=== PATIENT | male | born 1970 | race Caucasian/White ===

== ENCOUNTER 2021-01-25 21:08 | Emergency (ER) | payer OTHER, BC ==
[2021-01-25 22:00] VITALS: BP 119/76; PULSE 88; RESP 18; TEMP 97.8
[2021-01-25] MEDS ORDERED: LIDOCAINE 1% INJ 10MG/ML (20 ML MDV) SQ ONE (22:51)
[2021-01-25] MEDS ORDERED: DIPH,PERTUS(ACELL)TETVAC-LF 0.5 ML VIAL IM ONE (22:51)
[2021-01-25] MEDS ORDERED: IBUPROFEN 600 MG TAB PO STA (22:56)
--- NOTE | 2021-01-25 23:08 | XR ---
EXAMINATION TYPE: XR finger RT DATE OF EXAM: 01/25/2021 COMPARISON: NONE HISTORY: Pain TECHNIQUE: 3 views FINDINGS: I see no fracture nor dislocation. Joint spaces are normal. There are no pathologic calcifi cations. IMPRESSION: Negative right thumb exam. No fracture.
[2021-01-25] MEDS ORDERED: CEPHALEXIN 500MG STARTER PACK 4 CAP BTL PO STA (23:35)
[2021-01-25] MEDS ORDERED: BACITRACIN OINT 1 EACH PACKET TOPICAL STA (23:35)
--- NOTE | 2021-01-25 23:36 | ED ---
General Adult HPI - General Chief complaint: Wound/Laceration Stated complaint: Injury,Laceration Rt Thumb Time Seen by Provider: 01/25/21 22:38 Source: patient, RN notes reviewed Mode of arrival: ambulatory Limitations: no limitations - History of Present Illness Initial comments: 50-year-old male presents to the emergency room for deformity of laceration of the right thumb. Patient states he was reaching down to grab a sharp object and it actually skinned across his thumb on the knuckle. Denies any difficulty moving or bending the finger. Patient is not up-to-date on tetanus.Patient has no other complaints at this time including shortness of breath, chest pain, abdominal pain, nausea or vomiting, headache, or visual changes. - Related Data Home Medications Medication Instructions Recorded Confirmed Albuterol Sulfate [Ventolin HFA] 2 puff INHALATION DIRECTED PRN 10/22/14 06/13/15 Mometasone/Formoterol [Dulera 200 2 puff INHALATION DAILY 10/22/14 06/13/15 Mcg/5 Mcg Inhaler] gemfibroziL [Gemfibrozil] 600 mg PO BID 10/22/14 06/13/15 lisinopriL [Lisinopril] 10 mg PO DAILY 10/22/14 06/13/15 metFORMIN HCL 1,000 mg PO BID 10/22/14 06/13/15 Omeprazole [PriLOSEC] 20 mg PO DAILY 01/14/15 06/13/15 Previous Rx's Medication Instructions Recorded Dicyclomine HCl [Bentyl] 20 mg PO TID #30 tab 06/13/15 metroNIDAZOLE [Flagyl] 500 mg PO TID #30 tab 06/13/15 Cephalexin [Keflex] 500 mg PO Q6HR 7 Days #28 cap 01/25/21 Allergies Allergy/AdvReac Type Severity Reaction Status Date / Time No Known Allergies Allergy Verified 01/25/21 22:00 Review of Systems ROS Statement: Those systems with pertinent positive or pertinent negative responses have been documented in the HPI. ROS Other: All systems not noted in ROS Statement are negative. Past Medical History Past Medical History: Asthma, Diabetes Mellitus, GERD/Reflux, Hyperlipidemia, Hypertension, Skin Disorder Additional Past Medical History / Comment(s): DYSPHAGIA,PSORIASIS KNEES,ANKLES & ELBOWS History of Any Multi-Drug Resistant Organisms: None Reported Past Surgical History: Back Surgery Additional Past Surgical History / Comment(s): BACK SX X2, EGD 08/24/14 Past Anesthesia/Blood Transfusion Reactions: No Reported Reaction Past Psychological History: No Psychological Hx Reported Smoking Status: Never smoker Past Alcohol Use History: Occasional Past Drug Use History: None Reported - Past Family History Mother Family Medical History: No Reported History General Exam Limitations: no limitations General appearance: alert, in no apparent distress Head exam: Present: atraumatic Eye exam: Present: normal appearance, PERRL, EOMI. Absent: scleral icterus, conjunctival injection ENT exam: Present: normal exam, mucous membranes moist Neck exam: Present: normal inspection, full ROM. Absent: tenderness Respiratory exam: Present: normal lung sounds bilaterally. Absent: respiratory distress, wheezes Cardiovascular Exam: Present: regular rate, normal rhythm, normal heart sounds Extremities exam: Present: other (2 cm laceration over the IP joint of the right thumb, dorsal aspect. No evidence for tendon rupture. Full range of motion including extension.) Course Vital Signs 01/25/21 21:57 Temperature 97.8 F Pulse Rate 88 Respiratory 18 Rate Blood Pressure 119/76 O2 Sat by Pulse 94 L Oximetry Procedures - Laceration Laceration #1 Consent Obtained: verbal consent Indication: laceration Site: hand Size (cm): 2 Description: linear Depth: simple, single layer Anesthetic Used: lidocaine 1% Anesthesia Technique: local infiltration Amount (mls): 2 Pre-repair: wound explored, irrigated extensively, deep structures intact Type of Sutures: nylon Size of Sutures: 4-0 Number of Sutures: 4 Technique: simple, interrupted Patient Tolerated Procedure: well, no complications Medical Decision Making - Medical Decision Making Laceration repaired with 4 simple and opted sutures after verifying with x-ray there were no acute fractures or foreign bodies. Wound was irrigated thoroughly with saline pressure irrigation and evaluated for foreign body and tendon rupture which were not evident. Given the location of wound we will put patient on prophylactic antibiotics. Patient will follow up with his doctor. He will return for any worsening symptoms which were discussed. Disposition Clinical Impression: Laceration Disposition: HOME SELF-CARE Condition: Good Instructions (If sedation given, give patient instructions): Care For Your Stitches (ED), Laceration (ED) Additional Instructions: Keep the area clean with gentle soap and water. You can apply antibiotic ointment twice daily and keep it wrapped for the first couple days. Follow up with primary care as needed. Return in 7-10 days for suture removal. Return earlier for any signs of infection such as spreading or streaking redness, drainage, or fever. Prescriptions: Cephalexin [Keflex] 500 mg PO Q6HR 7 Days #28 cap Is patient prescribed a controlled substance at d/c from ED?: No Referrals: Christin Daly MD [Primary Care Provider] - 1-2 days Time of Disposition: 23:35
== END 2021-01-25 23:49 | disposition home or self-care (01) ==
LOC: EC 21:08
DX: S61.011A Laceration without foreign body of right thumb without damage to nail, initial encounter (principal); J45.909 Unspecified asthma, uncomplicated; E11.9 Type 2 diabetes mellitus without complications; I10 Essential (primary) hypertension; K21.9 Gastro-esophageal reflux disease without esophagitis; Z79.84 Long term (current) use of oral hypoglycemic drugs; Z79.899 Other long term (current) drug therapy; Z79.51 Long term (current) use of inhaled steroids; Z23 Encounter for immunization; W26.8XXA Contact with other sharp object(s), not elsewhere classified, initial encounter
CPT/HCPCS: 73140; 90715; 90471; 99283; 12001; J2001

== ENCOUNTER → 2021-10-27 | Outpatient (CLI) | payer BC ==
--- NOTE | 2021-10-27 14:40 | XR ---
EXAMINATION TYPE: XR hand complete RT DATE OF EXAM: 10/27/2021 COMPARISON: NONE HISTORY: Pain TECHNIQUE: Three views are submitted. FINDINGS: The osseous structures are intact. The joint spaces are preserved and there is no acute fracture or dislocation. Chronic appearing density along the dorsal surface distal phalanx fourth digit most lik leticia in the basis of prior trauma. Mild narrowing third MCP joint. IMPRESSION: 1. No definite acute fracture or dislocation if symptoms persist, follow-up study in 7 to 10 days wo uld be suggested. 2. Mild arthropathy third MCP joint. 3. There is a linear density extending from the dorsal cortex of the distal phalanx fourth digit whic h could be on the basis of prior trauma.
== END | disposition home or self-care (01) ==
LOC: RADXRYALE 14:14
PROVIDERS: ATTEND Internal Medicine
DX: M65.841 Other synovitis and tenosynovitis, right hand (principal)

== ENCOUNTER → 2022-07-05 | Outpatient (CLI) | payer BC ==
[2022-07-05 14:57] LABS: ALT 23 U/L (10-49); Chol/HDL Ratio 5.31 Ratio; LDL Cholesterol,Calculated 106.3 mg/dL (0.0-131.0)
[2022-07-05 14:58] LABS: AST 19 U/L (14-35)
== END | disposition home or self-care (01) ==
LOC: LABWHC1 08:45
PROVIDERS: ATTEND Internal Medicine Cardiovascular Disease
DX: E78.2 Mixed hyperlipidemia (principal)
CPT/HCPCS: 36415; 80061; 84450; 84460

== ENCOUNTER 2022-11-26 17:01 | Inpatient (IN) | payer BC ==
--- NOTE | 2022-11-26 17:30 | ED ---
General Adult HPI - General Chief complaint: Shortness of Breath Stated complaint: JOVAN,Pneumonia, Sent by Urgent Care Time Seen by Provider: 11/26/22 17:21 Source: patient, family, RN notes reviewed Mode of arrival: ambulatory Limitations: no limitations - History of Present Illness Initial comments: Patient is a pleasant 32-year-old male presenting to the emergency department with concerns with difficulty breathing. Onset of symptoms was 2 days ago. Patient does have cough with occasional yellow sputum. No fever. Patient does feel short of breath. Patient does have history of asthma and has been using his inhaler without much improvement. Patient has mild dullness/discomfort left chest. No calf pain or leg swelling. Patient did go to urgent care prior to arrival and x-ray concerning for pneumonia. Patient was advised come the emergency department. Patient was given a dose Rocephin. - Related Data Home Medications Medication Instructions Recorded Confirmed Albuterol Sulfate [Ventolin HFA] 2 puff INHALATION DIRECTED PRN 10/22/14 06/13/15 Mometasone/Formoterol [Dulera 200 2 puff INHALATION DAILY 10/22/14 06/13/15 Mcg/5 Mcg Inhaler] gemfibroziL [Gemfibrozil] 600 mg PO BID 10/22/14 06/13/15 lisinopriL [Lisinopril] 10 mg PO DAILY 10/22/14 06/13/15 metFORMIN HCL 1,000 mg PO BID 10/22/14 06/13/15 Omeprazole [PriLOSEC] 20 mg PO DAILY 01/14/15 06/13/15 Previous Rx's Medication Instructions Recorded Dicyclomine HCl [Bentyl] 20 mg PO TID #30 tab 06/13/15 metroNIDAZOLE [Flagyl] 500 mg PO TID #30 tab 06/13/15 Cephalexin [Keflex] 500 mg PO Q6HR 7 Days #28 cap 01/25/21 Allergies Allergy/AdvReac Type Severity Reaction Status Date / Time semaglutide [From Ozempic] AdvReac Diarrhea Verified 11/26/22 17:20 Review of Systems ROS Statement: Those systems with pertinent positive or pertinent negative responses have been documented in the HPI. ROS Other: All systems not noted in ROS Statement are negative. Constitutional: Denies: fever Eyes: Denies: eye pain ENT: Denies: ear pain Respiratory: Reports: as per HPI, cough, dyspnea Cardiovascular: Reports: as per HPI, chest pain Endocrine: Denies: fatigue Gastrointestinal: Denies: abdominal pain Genitourinary: Denies: urgency Musculoskeletal: Denies: back pain Skin: Denies: rash Past Medical History Past Medical History: Asthma, Diabetes Mellitus, GERD/Reflux, Hyperlipidemia, Hypertension, Skin Disorder Additional Past Medical History / Comment(s): DYSPHAGIA,PSORIASIS KNEES,ANKLES & ELBOWS History of Any Multi-Drug Resistant Organisms: None Reported Past Surgical History: Back Surgery Additional Past Surgical History / Comment(s): BACK SX X2, EGD 08/24/14 Past Anesthesia/Blood Transfusion Reactions: No Reported Reaction Past Psychological History: No Psychological Hx Reported Smoking Status: Never smoker Past Alcohol Use History: Occasional Past Drug Use History: None Reported - Past Family History Mother Family Medical History: No Reported History General Exam Limitations: no limitations General appearance: alert, in no apparent distress Head exam: Present: normocephalic Eye exam: Present: normal appearance Neck exam: Present: normal inspection Respiratory exam: Present: normal lung sounds bilaterally. Absent: respiratory distress, wheezes Cardiovascular Exam: Present: regular rate, normal rhythm GI/Abdominal exam: Present: soft. Absent: tenderness Extremities exam: Present: normal inspection. Absent: pedal edema, calf tenderness Neurological exam: Present: alert Psychiatric exam: Present: normal affect, normal mood Skin exam: Present: normal color Course Vital Signs 11/26/22 11/26/22 17:16 19:00 Temperature 98.2 F 98.8 F Pulse Rate 80 80 Respiratory 18 17 Rate Blood Pressure 113/77 108/76 O2 Sat by Pulse 95 96 Oximetry EKG Findings - EKG Results: EKG: interpreted by ERMD (Inferior Q waves), sinus rhythm, normal axis, normal ST/T Medical Decision Making - Medical Decision Making Was pt. sent in by a medical professional or institution (, PA, OUTSIDE SALES REPRESENTATIVE INSURANCE, urgent care, hospital, or prison...) When possible be specific @ -Patient was sent by urgent care Did you speak to anyone other than the patient for history (EMS, parent, family, police, friend...)? What history was obtained from this source @ -Family is present and helps provide history including onset Did you review nursing and triage notes (agree or disagree)? Why? @ -I reviewed and agree with nursing and triage notes Were old charts reviewed (outside hosp., previous admission, EMS record, old EKG, old radiological studies, urgent care reports/EKG's, prison records)? Report findings @ -Review transfer chart Differential Diagnosis (chest pain, altered mental status, abdominal pain women, abdominal pain men, vaginal bleeding, weakness, fever, dyspnea, syncope, headache, dizziness, GI bleed, back pain, seizure, CVA, palpatations, mental health, musculoskeletal)? @ -Differential Dyspnea: Coronary syndrome, arrhythmia, tamponade, asthma, COPD, pulmonary embolism, pneumonia, pneumothorax, pulmonary effusion, anaphylaxis, diabetic ketoacidosis, flailed chest, pulmonary contusion, diaphragmatic rupture, anemia, neuromuscular, this is not meant to be an all-inclusive list. EKG interpreted by me (3pts min.). @ -As above X-rays interpreted by me (1pt min.). @ -Chest x-ray shows left lingular and lower lobe infiltrate CT interpreted by me (1pt min.). @ -Report reviewed U/S interpreted by me (1pt. min.). @ -None done What testing was considered but not performed or refused? (CT, X-rays, U/S, labs)? Why? @ -None What meds were considered but not given or refused? Why? @ -None Did you discuss the management of the patient with other professionals (obey crump i.e. , PA, OUTSIDE SALES REPRESENTATIVE INSURANCE, lab, RT, psych nurse, social science instructor, excavator backhoe operator, teacher, boat officer, shoe caser)? Give summary @ -Case is discussed discussed with Dr. Olivier, who will admit Her doctor Addy Was smoking cessation discussed for >3mins.? @ -No Was critical care preformed (if so, how long)? @ -No Were there social determinants of health that impacted care today? How? (Homelessness, low income, unemployed, alcoholism, drug addiction, transportation, low edu. Level, literacy, decrease access to med. care, penitentiary, rehab)? @ -No Was there de-escalation of care discussed even if they declined (Discuss DNR or withdrawal of care, Hospice)? DNR status @ -No What co-morbidities impacted this encounter? (DM, HTN, Smoking, COPD, CAD, Cancer, CVA, ARF, Chemo, Hep., AIDS, mental health diagnosis, sleep apnea, morbid obesity)? @ -None Was patient admitted / discharged? Hospital course, mention meds given and route, prescriptions, significant lab abnormalities, going to OR and other pertinent info. @ -Patient reevaluated. Second or 2 multilobular pneumonia patient will be admitted with IV antibiotics. Admission orders written. Undiagnosed new problem with uncertain prognosis? @ -No Drug Therapy requiring intensive monitoring for toxicity (Heparin, Nitro, Insulin, Cardizem)? @ -No Were any procedures done? @ -No Diagnosis/symptom? @ -Multilobular pneumonia Acute, or Chronic, or Acute on Chronic? @ -Acute Uncomplicated (without systemic symptoms) or Complicated (systemic symptoms)? @ -default Side effects of treatment? @ -No Exacerbation, Progression, or Severe Exacerbation? @ -No Poses a threat to life or bodily function? How? (Chest pain, [place], [place], pneumonia, PE, COPD, DKA, ARF, appy, cholecystitis, CVA, Diverticulitis, Homicidal, Suicidal, threat to staff... and all critical care pts) @ -No - Lab Data Result diagrams: 11/26/22 17:27 11/26/22 17:27 Lab Results 11/26/22 11/26/22 11/26/22 Range/Units 17:27 17:27 17:27 WBC 9.7 (3.8-10.6) k/uL RBC 5.01 (4.30-5.90) m/uL Hgb 14.6 (13.0-17.5) gm/dL Hct 44.3 (39.0-53.0) % MCV 88.4 (80.0-100.0) fL MCH 29.2 (25.0-35.0) pg MCHC 33.0 (31.0-37.0) g/dL RDW 13.3 (11.5-15.5) % Plt Count 330 (150-450) k/uL MPV 8.7 Neutrophils % 65 % Lymphocytes % 17 % Monocytes % 7 % Eosinophils % 8 % Basophils % 0 % Neutrophils # 6.3 (1.3-7.7) k/uL Lymphocytes # 1.7 (1.0-4.8) k/uL Monocytes # 0.7 (0-1.0) k/uL Eosinophils # 0.8 H (0-0.7) k/uL Basophils # 0.0 (0-0.2) k/uL PT 9.9 (9.0-12.0) sec INR 0.9 (<1.2) APTT 23.9 (22.0-30.0) sec D-Dimer 1.40 H (<0.60) mg/L FEU Sodium 137 (137-145) mmol/L Potassium 4.9 (3.5-5.1) mmol/L Chloride 102 (98-107) mmol/L Carbon Dioxide 21 L (22-30) mmol/L Anion Gap 14 mmol/L BUN 9 (9-20) mg/dL Creatinine 0.66 (0.66-1.25) mg/dL Est GFR (CKD-EPI)AfAm >90 (>60 ml/min/1.73 sqM) Est GFR (CKD-EPI)NonAf >90 (>60 ml/min/1.73 sqM) Glucose 129 H (74-99) mg/dL Plasma Lactic Acid Beck (0.7-2.0) mmol/L Calcium 9.4 (8.4-10.2) mg/dL Total Bilirubin 0.6 (0.2-1.3) mg/dL AST 30 (17-59) U/L ALT 27 (4-49) U/L Alkaline Phosphatase 76 (38-126) U/L Troponin I (0.000-0.034) ng/mL NT-Pro-B Natriuret Pep <20 pg/mL Total Protein 7.4 (6.3-8.2) g/dL Albumin 4.3 (3.5-5.0) g/dL Coronavirus (PCR) (Not Detectd) 11/26/22 11/26/22 11/26/22 Range/Units 17:27 17:27 17:27 WBC (3.8-10.6) k/uL RBC (4.30-5.90) m/uL Hgb (13.0-17.5) gm/dL Hct (39.0-53.0) % MCV (80.0-100.0) fL MCH (25.0-35.0) pg MCHC (31.0-37.0) g/dL RDW (11.5-15.5) % Plt Count (150-450) k/uL MPV Neutrophils % % Lymphocytes % % Monocytes % % Eosinophils % % Basophils % % Neutrophils # (1.3-7.7) k/uL Lymphocytes # (1.0-4.8) k/uL Monocytes # (0-1.0) k/uL Eosinophils # (0-0.7) k/uL Basophils # (0-0.2) k/uL PT (9.0-12.0) sec INR (<1.2) APTT (22.0-30.0) sec D-Dimer (<0.60) mg/L FEU Sodium (137-145) mmol/L Potassium (3.5-5.1) mmol/L Chloride (98-107) mmol/L Carbon Dioxide (22-30) mmol/L Anion Gap mmol/L BUN (9-20) mg/dL Creatinine (0.66-1.25) mg/dL Est GFR (CKD-EPI)AfAm (>60 ml/min/1.73 sqM) Est GFR (CKD-EPI)NonAf (>60 ml/min/1.73 sqM) Glucose (74-99) mg/dL Plasma Lactic Acid Beck 1.3 (0.7-2.0) mmol/L Calcium (8.4-10.2) mg/dL Total Bilirubin (0.2-1.3) mg/dL AST (17-59) U/L ALT (4-49) U/L Alkaline Phosphatase (38-126) U/L Troponin I <0.012 (0.000-0.034) ng/mL NT-Pro-B Natriuret Pep pg/mL Total Protein (6.3-8.2) g/dL Albumin (3.5-5.0) g/dL Coronavirus (PCR) Not Detected (Not Detectd) Disposition Clinical Impression: Multifocal pneumonia Disposition: ADMITTED IP TO THIS HOSP Is patient prescribed a controlled substance at d/c from ED?: No Referrals: Christin Daly MD [Primary Care Provider] - 1-2 days Time of Disposition: 20:28
[2022-11-26 18:19] LABS: Basophils % (A) 0 %; Eosinophils # (A) 0.8 k/uL (0-0.7); Eosinophils % (A) 8 %; HCT 44.3 % (39.0-53.0); HGB 14.6 gm/dL (13.0-17.5); Lymphocytes # (A) 1.7 k/uL (1.0-4.8); Lymphocytes % (A) 17 %; MCH 29.2 pg (25.0-35.0); MCV 88.4 fL (80.0-100.0); Mean Platelet Volume 8.7; Monocytes # (A) 0.7 k/uL (0-1.0); Monocytes % (A) 7 %; Neutrophils # (A) 6.3 k/uL (1.3-7.7); Neutrophils % (A) 65 %; Platelet Count 330 k/uL (150-450); RBC 5.01 m/uL (4.30-5.90); RDW 13.3 % (11.5-15.5); WBC 9.7 k/uL (3.8-10.6)
--- NOTE | 2022-11-26 18:22 | XR ---
EXAMINATION TYPE: XR chest 2V DATE OF EXAM: 11/26/2022 6:07 PM COMPARISON: None TECHNIQUE: XR chest 2V Frontal and lateral views of the chest. CLINICAL INDICATION:Male, 52 years old with history of difficulty breathing; FINDINGS: Lungs/Pleura: Left mid and lower lung airspace opacities are present. There is flattening of the diap hragm with increased lucency of the lungs. No evidence of pneumothorax, pleural effusion or focal con solidation. Pulmonary vascularity: Unremarkable. Heart/mediastinum: Cardiomediastinal silhouette is unremarkable. Musculoskeletal: No acute osseous pathology. IMPRESSION: Left mid and lower lung airspace opacities concerning for pneumonia. COPD.
[2022-11-26 18:37] LABS: INR 0.9 (<1.2); Partial Thromboplastin Time 23.9 sec (22.0-30.0); Prothrombin Time 9.9 sec (9.0-12.0)
[2022-11-26 18:56] LABS: ALT 27 U/L (4-49); AST 30 U/L (17-59); African American GFR (CKD) >90 (>60 ml/min/1.73 sqM); Albumin 4.3 g/dL (3.5-5.0); Alkaline Phosphatase 76 U/L (38-126); Anion Gap 14 mmol/L; Blood Urea Nitrogen 9 mg/dL (9-20); Calcium 9.4 mg/dL (8.4-10.2); Carbon Dioxide 21 mmol/L (22-30); Chloride 102 mmol/L (98-107); Glucose 129 mg/dL (74-99); Non-African American GFR(CKD) >90 (>60 ml/min/1.73 sqM); Potassium 4.9 mmol/L (3.5-5.1); Sodium 137 mmol/L (137-145); Total Bilirubin 0.6 mg/dL (0.2-1.3); Total Protein 7.4 g/dL (6.3-8.2)
[2022-11-26 19:01] LABS: NT-Pro-B-Type Natriuretic Pept <20 pg/mL
--- NOTE | 2022-11-26 20:07 | CT ---
EXAMINATION TYPE: CT angio chest CT DLP: 618.8 mGycm, Automated exposure control for dose reduction was used. DATE OF EXAM: 11/26/2022 7:27 PM COMPARISON: Chest radiograph from same day, CLINICAL INDICATION:Male, 52 years old with history of dyspnea; SOB. R/O PE. TECHNIQUE/CONTRAST: CTA scan of the thorax is performed with IV Contrast, patient injected with 100 ml mL of Isovue 370, MIP images are created and reviewed these are created on a separate workstation.. FINDINGS: Pulmonary Artery: There is no evidence for a filling defect within the pulmonary vasculature to sugge st acute pulmonary embolism. The pulmonary artery is of normal size. Lungs/Pleura: Consolidation changes are seen in the bilateral upper lungs left greater than right. No evidence for pneumothorax. There is trace left pleural effusion. Airway: Large airways are patent. Heart: Heart is within normal limits for size. Vasculature: No evidence of aortic aneurysm. Mediastinum: No gross evidence of adenopathy. Distal esophageal wall thickening worse in the lower me diastinum/inferior esophagus. Musculoskeletal: No acute osseous abnormalities Soft Tissues: Unremarkable. Lower neck: No significant findings. Upper Abdomen: No significant findings. IMPRESSION: 1. No evidence of pulmonary embolism. 2. Bilateral upper lobe airspace opacities compatible with pneumonia. 3. Trace left pleural effusion correlate for pneumonic effusion. 4. Circumferential esophageal thickening correlate for esophagitis.
[2022-11-26] MEDS ORDERED: PNEUMONIA PROTOCOL UTILIZED 1 EACH MISC PO PRN (20:28)
[2022-11-26] MEDS ORDERED: IPRATROPIUM-ALBUTEROL 3 ML NEB INHALATION PRN (20:28)
[2022-11-26] MEDS ORDERED: AZITHROMYCIN 500 MG in SODIUM CHLORIDE 0.9% 250 ML IVPB STA (20:28)
[2022-11-26] MEDS ORDERED: ALBUTEROL NEBULIZED 2.5 MG/3 ML INHALATION PRN (22:21)
[2022-11-26] MEDS ORDERED: AZITHROMYCIN 500 MG in SODIUM CHLORIDE 0.9% 250 ML IVPB ONE (22:30)
[2022-11-26] MEDS: SODIUM CHLORIDE 0.9% 1,000 ML IV SCH (22:59)
[2022-11-27] MEDS: SODIUM CHLORIDE 0.9% 1,000 ML IV SCH (06:47)
--- NOTE | 2022-11-27 07:39 | XR ---
EXAMINATION TYPE: XR chest 2V DATE OF EXAM: 11/27/2022 7:26 AM COMPARISON: Chest radiographs from 11/26/2022, CTA chest 11/26/2022 TECHNIQUE: XR chest 2V Frontal and lateral views of the chest. CLINICAL INDICATION:Male, 52 years old with history of pneumonia; FINDINGS: Lungs/Pleura: No pleural effusion or pneumothorax. Slightly decreased patchy airspace opacities withi n the left mid and lower lung. Pulmonary vascularity: Unremarkable. Heart/mediastinum: Cardiomediastinal silhouette is unremarkable. Musculoskeletal: No acute osseous pathology. IMPRESSION: Slightly decreased patchy airspace opacities within the left mid and lower lung again concerning for pneumonia.
[2022-11-27] MEDS ORDERED: IPRATROPIUM-ALBUTEROL 3 ML NEB INHALATION PRN (07:49)
[2022-11-27] MEDS ORDERED: SYMBICORT 160-4.5 MCG INHALER INHALATION SCH (08:00)
--- NOTE | 2022-11-27 08:08 | P.HPIM ---
History of Present Illness H&P Date: 11/26/22 Chief Complaint: Shortness of breath 32-year-old male, history of diabetes mellitus, hypertension, hyperlipidemia and asthma, presenting to the emergency department with concerns with difficulty breathing. Onset of symptoms was 2 days ago. Patient does have cough with occa sional yellow sputum. No fever. Patient does feel short of breath. Patient does have history of asthma and has been using his inhaler without much improvement. Patient has mild dullness/discomfort left chest. No calf pain or leg swelling. Patient did go to urgent care prior to arrival and x-ray was completed concerning for pneumonia. Patient was advised come the emergency department. Patient was given a dose Rocephin. Chest x-ray shows left lingular and lower lobe infiltrate Blood work completed in ED reveals a WBC of 9.7, hemoglobin of 14.6 and platelet count of 3:30, sodium 137, potassium 4.9, BUN/creatinine of 19/0.66 and blood glucose of 129; uriarte virus PCR is negative - Given history of diabetes and hypertension and chest x-ray revealing multilobar pneumonia, patient is best served by admission for IV antibiotics and pulmonary evaluation Review of Systems REVIEW OF SYSTEMS: CONSTITUTIONAL: No fever, no malaise, no fatigue. HEENT: No recent visual problems or hearing problems. Denied any sore throat. CARDIOVASCULAR: No chest pain, orthopnea, PND, no palpitations, no syncope. PULMONARY: Complains of shortness of breath, cough productive of yellowish/greenish phlegm, no hemoptysis. GASTROINTESTINAL: No diarrhea, no nausea, no vomiting, no abdominal pain. NEUROLOGICAL: No headaches, no weakness, no numbness. HEMATOLOGICAL: Denies any bleeding or petechiae. GENITOURINARY: Denies any burning micturition, frequency, or urgency. MUSCULOSKELETAL/RHEUMATOLOGICAL: Denies any joint pain, swelling, or any muscle pain. ENDOCRINE: Denies any polyuria or polydipsia. The rest of the 14-point review of systems is negative. Past Medical History Past Medical History: Asthma, Diabetes Mellitus, GERD/Reflux, Hyperlipidemia, Hypertension, Skin Disorder Additional Past Medical History / Comment(s): DYSPHAGIA,PSORIASIS KNEES,ANKLES & ELBOWS History of Any Multi-Drug Resistant Organisms: None Reported Past Surgical History: Back Surgery Additional Past Surgical History / Comment(s): BACK SX X2, EGD 08/24/14 Past Anesthesia/Blood Transfusion Reactions: No Reported Reaction Past Psychological History: No Psychological Hx Reported Smoking Status: Former smoker Past Alcohol Use History: Occasional Additional Past Alcohol Use History / Comment(s): STARTED SMOKING AGE 16(1986) QUIT 2004- WAS 2PPD Past Drug Use History: None Reported - Past Family History Mother Family Medical History: No Reported History Medications and Allergies Home Medications Medication Instructions Recorded Confirmed Type Albuterol Sulfate [Ventolin HFA] 2 puff INHALATION RT-QID PRN 10/22/14 11/26/22 History Mometasone/Formoterol [Dulera 200 2 puff INHALATION RT-BID 10/22/14 11/26/22 History Mcg/5 Mcg Inhaler] gemfibroziL [Gemfibrozil] 600 mg PO BID 10/22/14 11/26/22 History lisinopriL [Lisinopril] 10 mg PO DAILY 10/22/14 11/26/22 History Aspirin EC [Ecotrin Low Dose] 81 mg PO HS 11/26/22 11/26/22 History Dapagliflozin Propanediol [Farxiga] 10 mg PO DAILY 11/26/22 11/26/22 History Semaglutide [Rybelsus] 14 mg PO DAILY 11/26/22 11/26/22 History lisinopriL [Zestril] 20 mg PO HS 11/26/22 11/26/22 History metFORMIN HCL ER [Glucophage XR] 1,000 mg PO BID 11/26/22 11/26/22 History Allergies Allergy/AdvReac Type Severity Reaction Status Date / Time semaglutide [From Ozempic] AdvReac Diarrhea Verified 11/26/22 20:33 Physical Exam Vitals: Vital Signs Temp Pulse Resp BP Pulse Ox 11/26/22 19:00 98.8 F 80 17 108/76 96 11/26/22 17:16 98.2 F 80 18 113/77 95 Intake and Output 11/26/22 11/26/22 11/26/22 06:59 14:59 22:59 Other: Weight 119.748 kg PHYSICAL EXAMINATION: GENERAL: The patient is alert and oriented x3, not in any acute distress. Well developed, well nourished. HEENT: Pupils are round and equally reacting to light. EOMI. No scleral icterus. No conjunctival pallor. Normocephalic, atraumatic. No pharyngeal erythema. No thyromegaly. CARDIOVASCULAR: S1 and S2 present. No murmurs, rubs, or gallops. PULMONARY: Chest is clear to auscultation, no wheezing or crackles. ABDOMEN: Soft, nontender, nondistended, normoactive bowel sounds. No palpable organomegaly. MUSCULOSKELETAL: No joint swelling or deformity. EXTREMITIES: No cyanosis, clubbing, or pedal edema. NEUROLOGICAL: Gross neurological examination did not reveal any focal deficits. SKIN: No rashes. Results CBC & Chem 7: 11/26/22 17:27 11/26/22 17:27 Labs: Abnormal Lab Results - Last 24 Hours (Table) 11/26/22 11/26/22 11/26/22 Range/Units 17: 17: 17: Eosinophils # 0.8 H (0-0.7) k/uL D-Dimer 1.40 H (<0.60) mg/L FEU Carbon Dioxide 21 L (22-30) mmol/L Glucose 129 H (74-99) mg/dL Thrombosis Risk Factor Assmnt - Choose All That Apply Any of the Below Risk Factors Present?: Yes Each Factor Represents 1 point: Age 41-60 years, Obesity (BMI >25) Other Risk Factors: No Each Risk Factor Represents 2 Points: Malignancy Other congenital or acquired thrombophilia - If yes, enter type in comment: No Thrombosis Risk Factor Assessment Total Risk Factor Score: 4 Thrombosis Risk Factor Assessment Level: Moderate Risk Assessment and Plan Assessment: 1. Multilobar pneumonia - Patient is placed on IV Rocephin and azithromycin; DuoNeb nebulizer treatments 4 times a day and when necessary; symptomatic treatment for productive cough - We will consult pulmonary for further evaluation 2. Elevated d-dimer; CT of the chest completed in ED reveals multilobar pneumonia; no PE 3. Esophageal thickening; concern for esophagitis; we will start patient on Protonix 40 mg IV daily with plans to resume oral dose upon discharge; patient will need follow-up with GI 3. History of diabetes mellitus; patient takes metformin thousand milligrams twice a day along with farxiga mg daily; Rybelsus 14 mg subcu daily; we will monitor Accu-Cheks before meals and at bedtime with insulin sliding scale 4. Hypertension; lisinopril 10 mg every morning and 20 mg by mouth daily at bedtime 5. Asthma; not in exacerbation; continue with home inhaler therapy in form of Dulera; albuterol inhaler when necessary 6. Hyperlipidemia; Lopid 600 mg twice a day DVT prophylaxis; SCDs/subcu heparin CODE STATUS; full code
[2022-11-27 08:47] VITALS: BP 110/73; RESP 18; TEMP 98.5
[2022-11-27] MEDS ORDERED: AZITHROMYCIN 500 MG TAB PO SCH (09:00)
[2022-11-27] MEDS ORDERED: FENOFIBRATE 160 MG TAB PO SCH (09:00)
[2022-11-27] MEDS ORDERED: DAPAGLIFLOZIN PROPANEDIOL 10 MG TABLET PO SCH (09:00)
[2022-11-27] MEDS ORDERED: lisinopriL 10 MG TAB PO SCH (09:00)
[2022-11-27] MEDS ORDERED: metFORMIN 500 MG TAB PO SCH (09:00)
[2022-11-27] MEDS ORDERED: PANTOPRAZOLE 40 MG/10 ML VIAL IVP SCH (09:00)
--- NOTE | 2022-11-27 09:57 | P.CNPUL ---
History of Present Illness Consult date: 11/27/22 Requesting physician: Corbin E Oziel Reason for consult: dyspnea, pneumonia, abnormal CXR/CT Chief complaint: Shortness of breath, cough, congestion History of present illness: This is a 52-year-old male patient with a known history of diabetes mellitus, hypertension, asthma. He presented here to the emergency room yesterday with a 2-3 day history of increasing shortness of breath, cough and congestion. Occasional yellow productive sputum. He had been using his rescue inhaler without much improvement. He has some dull discomfort in his left chest. He was seen in urgent care and following a chest x-ray he was referred here for treatment. His chest x-ray does reveal a mid and lower lobe airspace opacities concerning for pneumonia. White count 9.7. Hemoglobin 14.6. Potassium 4.9. Sodium 137. Bicarb 21. BUN 9. Creatinine 0.66. Troponin negative times one. ProBNP less than 20. Procalcitonin pending. Coronavirus not detected. CT angiogram ruled out pulmonary embolism. There is bilateral upper lobe airspace opacities consistent with pneumonia. Trace left pleural effusion. Possible esophagitis with circumferential esophageal thickening. He's been initiated on bronchodilators, ceftriaxone and azithromycin. He is seen today in consultation on the regular medical floor. He is currently sitting on the bed. Awake and alert in no acute distress. Maintaining good O2 saturations in the mid 90s on room air. He's afebrile. Hemodynamically stable Already feeling better today compared to yesterday. Hoping to go home. His curb 65 score is zero. Review of Systems REVIEW OF SYSTEMS: CONSTITUTIONAL: Denies any recent significant weight loss or weight gain. EYES: Denies change in vision. EARS, NOSE, MOUTH, THROAT: Denies headaches, denies sore throat. CARDIOVASCULAR: Denies chest pain, palpitations or syncopal episodes. RESPIRATORY: Positive for shortness of breath, cough, congestion no hemoptysis. GASTROINTESTINAL: Denies change in appetite, denies abdominal pain GENITOURINARY: Denies hematuria, denies infections. MUSKULOSKELETAL: Denies pain, denies swelling. INTEGUMENTARY: Denies rash, denies eczema. NEUROLOGICAL: Denies recent memory loss, no recent seizure activity. PSYCHIATRIC: Denies anxiety, denies depression. HEMATOLOGIC/LYMPHATIC: Denies anemia, denies enlarged lymph nodes. Past Medical History Past Medical History: Asthma, Diabetes Mellitus, GERD/Reflux, Hyperlipidemia, Hypertension, Skin Disorder Additional Past Medical History / Comment(s): DYSPHAGIA,PSORIASIS KNEES,ANKLES & ELBOWS History of Any Multi-Drug Resistant Organisms: None Reported Past Surgical History: Back Surgery Additional Past Surgical History / Comment(s): BACK SX X2, EGD 08/24/14 Past Anesthesia/Blood Transfusion Reactions: No Reported Reaction Past Psychological History: No Psychological Hx Reported Smoking Status: Former smoker Past Alcohol Use History: Occasional Additional Past Alcohol Use History / Comment(s): STARTED SMOKING AGE 16(1986) QUIT 2004- WAS 2PPD Past Drug Use History: None Reported - Past Family History Mother Family Medical History: No Reported History Medications and Allergies Home Medications Medication Instructions Recorded Confirmed Type Albuterol Sulfate [Ventolin HFA] 2 puff INHALATION RT-QID PRN 10/22/14 11/26/22 History Mometasone/Formoterol [Dulera 200 2 puff INHALATION RT-BID 10/22/14 11/26/22 History Mcg/5 Mcg Inhaler] gemfibroziL [Gemfibrozil] 600 mg PO BID 10/22/14 11/26/22 History lisinopriL [Lisinopril] 10 mg PO DAILY 10/22/14 11/26/22 History Aspirin EC [Ecotrin Low Dose] 81 mg PO HS 11/26/22 11/26/22 History Dapagliflozin Propanediol [Farxiga] 10 mg PO DAILY 11/26/22 11/26/22 History Semaglutide [Rybelsus] 14 mg PO DAILY 11/26/22 11/26/22 History lisinopriL [Zestril] 20 mg PO HS 11/26/22 11/26/22 History metFORMIN HCL ER [Glucophage XR] 1,000 mg PO BID 11/26/22 11/26/22 History Allergies Allergy/AdvReac Type Severity Reaction Status Date / Time semaglutide [From Ozempic] AdvReac Diarrhea Verified 11/26/22 20:33 Physical Exam Vitals: Vital Signs Temp Pulse Pulse Resp BP BP Pulse Ox 11/27/22 08:49 86 11/27/22 08:39 82 94 L 11/27/22 07:41 98.5 F 68 18 110/73 94 L 11/27/22 02:00 98.2 F 83 16 127/70 94 L 11/26/22 22:47 95 11/26/22 22:27 98.0 F 85 16 129/81 95 11/26/22 19:00 98.8 F 80 17 108/76 96 11/26/22 17:16 98.2 F 80 18 113/77 95 Intake and Output 11/26/22 11/27/22 11/27/22 22:59 06:59 14:59 Intake Total 600 Balance 600 Intake: Oral 600 Other: # Voids 3 Weight 119.748 kg GENERAL EXAM: Alert, active, 52-year-old male patient, on room air, comfortable in no apparent distress. HEAD: Normocephalic. EYES: Normal reaction of pupils, equal size. NOSE: Clear with pink turbinates. THROAT: No erythema or exudates. NECK: No masses, no JVD. CHEST: No chest wall deformity. LUNGS: Equal air entry with few scattered rhonchi left greater than right. CVS: S1 and S2 normal with no audible murmur, regular rhythm. ABDOMEN: No hepatosplenomegaly, normal bowel sounds, no guarding or rigidity. SPINE: No scoliosis or deformity SKIN: No rashes CENTRAL NERVOUS SYSTEM: No focal deficits, tone is normal in all 4 extremities. EXTREMITIES: There is no peripheral edema. No clubbing, no cyanosis. Peripheral pulses are intact. Results - Laboratory Findings CBC and BMP: 11/26/22 17:27 11/26/22 17:27 PT/INR, D-dimer PT 9.9 sec (9.0-12.0) 11/26/22 17:27 INR 0.9 (<1.2) 11/26/22 17:27 D-Dimer 1.40 mg/L FEU (<0.60) H 11/26/22 17:27 Abnormal lab findings: Abnormal Labs 11/26/22 11/26/22 11/26/22 17:27 17:27 17:27 Eosinophils # 0.8 H D-Dimer 1.40 H Carbon Dioxide 21 L Glucose 129 H - Diagnostic Findings Chest x-ray: image reviewed CT scan - chest: image reviewed Assessment and Plan Assessment: Dyspnea secondary to community-acquired pneumonia. CT angiogram ruled out pulmonary embolism. There is bilateral upper lobe airspace opacities compatible with pneumonia. Trace left pleural effusion. Acute exacerbation of mild intermittent chronic bronchial asthma secondary to above Diabetes mellitus Hyperlipidemia Hypertension Nonsmoker Plan: The patient was seen and evaluated CAT scan, chest x-rays, labs and medications reviewed The patient is anxious to go home Curb 65 score is zero Could be discharged on Ceftin and azithromycin Continue his home Dulera and albuterol as needed Follow-up chest x-ray in 1 week Follow-up in our office in 1 week I have personally seen and examined the patient, performed the documentation and the assessment and plan as written. Number of minutes spent on the visit: 20.
[2022-11-27 10:48] LABS: Basophils % (A) 0 %; Eosinophils # (A) 0.8 k/uL (0-0.7); Eosinophils % (A) 10 %; HCT 43.1 % (39.0-53.0); HGB 14.3 gm/dL (13.0-17.5); Lymphocytes # (A) 1.8 k/uL (1.0-4.8); Lymphocytes % (A) 22 %; MCH 29.4 pg (25.0-35.0); MCHC 33.2 g/dL (31.0-37.0); MCV 88.5 fL (80.0-100.0); Mean Platelet Volume 9.4; Monocytes # (A) 0.6 k/uL (0-1.0); Monocytes % (A) 7 %; Neutrophils # (A) 5.1 k/uL (1.3-7.7); Neutrophils % (A) 60 %; Platelet Count 308 k/uL (150-450); RBC 4.87 m/uL (4.30-5.90); RDW 13.4 % (11.5-15.5); WBC 8.5 k/uL (3.8-10.6)
[2022-11-27 10:52] LABS: African American GFR (CKD) >90 (>60 ml/min/1.73 sqM); Anion Gap 14 mmol/L; Blood Urea Nitrogen 9 mg/dL (9-20); Calcium 8.7 mg/dL (8.4-10.2); Carbon Dioxide 20 mmol/L (22-30); Chloride 101 mmol/L (98-107); Glucose 174 mg/dL (74-99); Non-African American GFR(CKD) >90 (>60 ml/min/1.73 sqM); Potassium 4.4 mmol/L (3.5-5.1); Sodium 135 mmol/L (137-145)
[2022-11-27 11:40] VITALS: PULSE 68
[2022-11-27] MEDS ORDERED: ASPIRIN 81 MG PO SCH (21:00)
[2022-11-27] MEDS ORDERED: lisinopriL 20 MG TAB PO SCH (21:00)
== END 2022-11-27 14:13 | disposition home or self-care (01) | DRG 194 ==
LOC: EC 17:01 → 5NMEDONC 20:29
PROVIDERS: ADMIT Internal Medicine; ATTEND Internal Medicine
DX: J18.9 Pneumonia, unspecified organism (principal); J44.0 Chronic obstructive pulmonary disease with (acute) lower respiratory infection; J45.21 Mild intermittent asthma with (acute) exacerbation; E78.5 Hyperlipidemia, unspecified; I10 Essential (primary) hypertension; Z79.51 Long term (current) use of inhaled steroids; Z79.84 Long term (current) use of oral hypoglycemic drugs; Z79.899 Other long term (current) drug therapy; K21.9 Gastro-esophageal reflux disease without esophagitis; E66.9 Obesity, unspecified; Z68.33 Body mass index [BMI] 33.0-33.9, adult; R79.1 Abnormal coagulation profile; Z28.311 Partially vaccinated for COVID-19; L40.9 Psoriasis, unspecified; Z20.822 Contact with and (suspected) exposure to COVID-19; Z87.891 Personal history of nicotine dependence
CPT/HCPCS: 36415; 71046; 71275; 80048; 80053; 83605; 83880; 84145; 84484; 85025; 85379; 85610; 85730; 87040; 87449; 87635; 93005; 94640; 94760; 99285